=== PATIENT | male | born 1980 | race Caucasian/White ===

== ENCOUNTER 2016-12-15 20:15 | Emergency (ER) | payer SELFPAY ==
[~2016-12-15] VITALS: Ht 180.3 cm; Wt 79.8 kg
[2016-12-15 20:18] VITALS: Ht 180.3 cm; Wt 79.8 kg
[2016-12-15] MEDS ORDERED: HYDROCODONE/APAP (5/325) TAB PO ONE (21:00)
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
[2016-12-15] MEDS ORDERED: NAPR-260 PO (22:31)
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
== END 2016-12-15 20:50 | disposition home or self-care (01) ==
LOC: FTE 20:15
DX: M54.5 Low back pain (principal); M25.552 Pain in left hip; M25.551 Pain in right hip; M54.2 Cervicalgia
CPT/HCPCS: 72040; 73520